=== PATIENT | male | born 1985 | race Caucasian/White ===

== ENCOUNTER 2018-10-30 17:43 | Emergency (ER) | payer OTHER ==
[~2018-10-30] VITALS: Ht 167.6 cm; Wt 68.0 kg
[~2018-10-30 17:43] MED LIST: MINO100C6 PO; MUPI22OI29 EXT; SULF1TAB7 PO; TRAM50TA2 PO
--- NOTE | 2018-10-30 19:02 | Diagnostic Imaging Report ---
EXAMINATION: Right hand at 6:25 PM INDICATION: Injury, hand pain Three views were obtained. There are no prior studies available for comparison. There is a transverse slightly impacted fracture of the neck of the fifth metacarpal. No other fracture or acute bony abnormality is identified. However, there is deformity of the midshaft of the fourth metacarpal. Most likely, this is a sequela of prior trauma. The soft tissues are unremarkable. In particular, there is no sign of a radiopaque foreign body. IMPRESSION: There is an acute slightly impacted fracture of the neck of the fifth metacarpal. There is no acute bony abnormality identified otherwise. Dictated by: Dictated on workstation # [id number]
[2018-10-30] MEDS ORDERED: ACHD5005 PO (19:14)
--- NOTE | 2018-10-30 19:15 | ED Upper Extremity ---
General Chief Complaint: Upper Extremity Stated Complaint: R HAND PAIN Nursing Triage Note: patient advises that last sunday he was working when he got his hand caught in a piece of equipment. He advises that the equipment pressed down on his hand. He states he was seen and evaluated at urgent care at that time and took the appropriate steps for work comp. He advises that he was dx. with three broken bones and that they were working on obtaining a follow up appointment with ortho however he has not been contacted for an appointment at this point. The patient c/o severe pain. Nursing Sepsis Screen: No Definite Risk Source: patient Exam Limitations: no limitations History of Present Illness Date Seen by Provider: October 30, 2018 Time Seen by Provider: 19:12 Allergies and Home Medications Allergies Coded Allergies: No Known Drug Allergies (Unverified , 09/28/14) Home Medications Hydrocodone Bit/Acetaminophen 1 Tab Tab, 1 EACH PO Q4-6HR PRN for PAIN-MODERATE Prescribed by: DARY CLAUDIO on 10/30/181913 Minocycline Hcl 100 Mg Capsule, 100 MG PO BID Prescribed by: SHIV MCDONNELL on 09/28/141756 Mupirocin 22 Gm Oint, 22 GM EXT UD Prescribed by: SHIV MCDONNELL on 09/28/141756 Tramadol Hcl 50 Mg Tablet, 50 MG PO Q4H PRN for PAIN Prescribed by: SHIV MCDONNELL on 09/28/141756 Trimethoprim/Sulfamethoxazole 1 Ea Tablet, 1 TAB PO BID Prescribed by: SHIV MCDONNELL on 09/28/141756 Past Adzdtfa-Dbuhyq-Cypjas Hx Patient Social History Alcohol Use: Denies Use Recreational Drug Use: No Smoking Status: Never a Smoker Recent Foreign Travel: No Contact w/Someone Who Travel: No Recent Infectious Disease Expo: No Recent Hopitalizations: No Immunizations Up To Date Tetanus Booster (TDap): Less than 5yrs Seasonal Allergies Seasonal Allergies: No Past Medical History Surgeries: No Respiratory: No Cardiac: No Neurological: No Reproductive Disorders: No Sexually Transmitted Disease: No HIV/AIDS: No Gastrointestinal: No Musculoskeletal: No Endocrine: No Cancer: No Psychosocial: No Integumentary: No Blood Disorders: No Adverse Reaction/Blood Tranf: No Family Medical History Patient reports no known family medical history. No Pertinent Family Hx Physical Exam Vital Signs Vital Signs - First Documented Capillary Refill : Less Than 3 Seconds Height, Weight, BMI Height: 5'6.00" Weight: 150lbs. oz. [id number]; BMI Method:Stated Progress/Results/Core Measures Results/Orders My Orders Orders - DARY CLAUDIO Hand, Right, 3 Views (10/30/18 18:07) Vital Signs/I&O 10/30/18 18:16 B/P (MAP) Departure Impression Primary Impression: Fracture of hand Disposition: HOME, SELF-CARE Condition: Stable/Unchanged Departure-Patient Inst. Decision time for Depature: 19:13 Referrals: BEATRIZ BOWLES TOBY G DO NO,LOCAL PHYSICIAN (PCP) Primary Care Physician MARCELLE CRUM MD, MICHAEL P MD Patient Instructions: Hand Fracture (DC) Add. Discharge Instructions: Follow-up with your orthopedic surgeon by calling tomorrow morning for an appointment time. Wear the splint that was provided to you by a [facility] urgent care. Take medication as directed. Return back to the emergency room for worsening symptoms or concerns as needed. Do not use the right upper extremity while at work for any reason until you are cleared by an orthopedic surgeon. All discharge instructions reviewed with patient and/or family. Voiced understanding. Scripts Hydrocodone Bit/Acetaminophen (Hydrocodone/Acetaminophen 5/325mg Tablet) 1 Tab Tab 1 EACH PO Q4-6HR PRN for PAIN-MODERATE MDD 10 for 3 Days, #20 TAB Prov: DARY CLAUDIO 10/30/18 Work/School Note: Work Release Form Date Seen in the Emergency Department: October 30, 2018 Return to Work: October 31, 2018 Restrictions: Need Release from Doctor DARY CLAUDIO October 30, 2018 19:15
[2018-10-30] MEDS ORDERED: RX-HYDROCODONE/APAP 5/325 MG #4 TAB PK PO PRN (20:00)
[2018-10-30 20:08] VITALS: BP 105/83
== END 2018-10-30 20:08 | disposition home or self-care (01) ==
LOC: EDUNIT# 17:43 → ER 17:45
DX: S62.336A Displaced fracture of neck of fifth metacarpal bone, right hand, initial encounter for closed fracture (principal); W31.9XXA Contact with unspecified machinery, initial encounter
CPT/HCPCS: 73130